=== PATIENT | male | born 1995 | race Caucasian/White ===

== ENCOUNTER 2022-11-02 00:49 | Inpatient (IN) | payer SELFPAY ==
[2022-11-02 01:06] VITALS: BMI 23.3
[2022-11-02] MEDS ORDERED: METHOCARBAMOL 500 MG TABLET PO PRN (01:51)
[2022-11-02] MEDS ORDERED: MAG HYDROX/AL HYDROX/SIMETH 30 ML UNIT-DOSE CUP PO PRN (01:51)
[2022-11-02] MEDS ORDERED: guaiFENesin 600 MG TABLET.ER (FP) PO PRN (01:51)
[2022-11-02] MEDS ORDERED: BENZONATATE 200 MG CAPSULE PO PRN (01:51)
[2022-11-02] MEDS ORDERED: ONDANSETRON *ODT* 4 MG TABLET SL PRN (01:51)
[2022-11-02] MEDS ORDERED: NALOXONE HCL 0.4 MG/ML VIAL IM PRN (01:51)
[2022-11-02] MEDS ORDERED: IBUPROFEN 400 MG TABLET (FP) PO PRN (01:51)
[2022-11-02] MEDS ORDERED: IBUPROFEN 600 MG TABLET (FP) PO PRN (01:51)
[2022-11-02] MEDS ORDERED: NALOXONE HCL (KLOXXADO) 8 MG SPRAY NS PRN (01:51)
[2022-11-02] MEDS ORDERED: POLYETHYLENE GLYCOL (HEALTHYLAX) 3350 17 GM PACKET PO PRN (01:51)
[2022-11-02] MEDS ORDERED: LOPERAMIDE HCL 2 MG CAPSULE PO PRN (01:51)
[2022-11-02] MEDS ORDERED: BENZOCAINE/MENTHOL (CHLORASEPTIC ) LOZENGE MM PRN (01:51)
[2022-11-02] MEDS ORDERED: DICYCLOMINE HCL 10 MG CAPSULE PO PRN (01:51)
[2022-11-02] MEDS ORDERED: ACETAMINOPHEN 325 MG TABLET (FP) PO PRN (01:51)
[2022-11-02] MEDS ORDERED: MAGNESIUM HYDROX 2400MG/30ML ORAL SUSPENSION 30 ML CUP PO PRN (01:51)
[2022-11-02] MEDS ORDERED: BISMUTH SUBSALICYLATE 524 MG/30 ML PO PRN (01:51)
[2022-11-02] MEDS ORDERED: cloNIDine HCL 0.1 MG TABLET PO PRN (02:02)
[2022-11-02] MEDS ORDERED: methaDONE HCL 10 MG TABLET (FOR DETOX USE ONLY) PO ONE (02:02)
[2022-11-02] MEDS: NICOTINE POLACRILEX 2 MG GUM BUC PRN ×2 (03:39→06:15)
[2022-11-02] MEDS: hydrOXYzine PAMOATE 25 MG CAPSULE (FP) PO PRN ×2 (04:42→10:14)
[2022-11-02 06:18] VITALS: TEMP 97.7
[2022-11-02 09:55] VITALS: BP 122/65; PULSE 84; RESP 18
[2022-11-02] MEDS ORDERED: PRENATAL VITAMINS W/ FOLIC ACID TABLET (FP) PO SCH (10:00)
[2022-11-02] MEDS ORDERED: NICOTINE 14 MG/24 HOURS TOPICAL PATCH TD SCH (10:00)
[2022-11-02] MEDS ORDERED: diazePAM 5 MG TABLET PO PRN (10:38)
[2022-11-02] MEDS ORDERED: MELATONIN 5 MG TABLETS PO SCH (22:00)
[2022-11-02] MEDS ORDERED: THIAMINE HCL 100 MG TABLET (FP) PO SCH (22:00)
[2022-11-04] MEDS ORDERED: methaDONE HCL 10 MG TABLET (FOR DETOX USE ONLY) PO ONE (10:00)
[2022-11-06] MEDS ORDERED: methaDONE HCL 10 MG TABLET (FOR DETOX USE ONLY) PO ONE (10:00)
== END 2022-11-02 12:14 | disposition home or self-care (01) | DRG 773 ==
LOC: YASAS 00:49 → Y3N 01:58
PROVIDERS: ADMIT Allergy & Immunology; ATTEND Allergy & Immunology
PROC: HZ2ZZZZ Detoxification Services for Substance Abuse Treatment (ICD-10-PCS; principal; 2022-11-02)
DX: F11.23 Opioid dependence with withdrawal (principal); F15.90 Other stimulant use, unspecified, uncomplicated; F17.210 Nicotine dependence, cigarettes, uncomplicated; J45.909 Unspecified asthma, uncomplicated; M54.50 Low back pain, unspecified; G89.29 Other chronic pain; Z86.61 Personal history of infections of the central nervous system; Z28.310 Unvaccinated for COVID-19; Z28.9 Immunization not carried out for unspecified reason
CPT/HCPCS: 93005; 93010; C9803-CS; U0003; U0005

== ENCOUNTER 2022-11-13 19:56 | Inpatient (IN) | payer SELFPAY ==
[2022-11-13 20:34] VITALS: BMI 24.2
[2022-11-13] MEDS ORDERED: IBUPROFEN 600 MG TABLET (FP) PO PRN (22:19)
[2022-11-13] MEDS ORDERED: ALBUTEROL SO4 HFA INHALER IH PRN (22:19)
[2022-11-13] MEDS ORDERED: NALOXONE HCL 0.4 MG/ML VIAL IM PRN (22:20)
[2022-11-13] MEDS ORDERED: NICOTINE POLACRILEX 2 MG GUM BUC PRN (22:20)
[2022-11-13] MEDS ORDERED: BENZOCAINE/MENTHOL (CHLORASEPTIC ) LOZENGE MM PRN (22:20)
[2022-11-13] MEDS ORDERED: P-EPHED 60MG/TRIPROLIDI 2.5MG TABLET PO PRN (22:20)
[2022-11-13] MEDS ORDERED: MELATONIN 5 MG TABLETS PO PRN (22:20)
[2022-11-13] MEDS ORDERED: IBUPROFEN 400 MG TABLET (FP) PO PRN (22:20)
[2022-11-13] MEDS ORDERED: LOPERAMIDE HCL 2 MG CAPSULE PO PRN (22:20)
[2022-11-13] MEDS ORDERED: DICYCLOMINE HCL 10 MG CAPSULE PO PRN (22:20)
[2022-11-13] MEDS ORDERED: ONDANSETRON *ODT* 4 MG TABLET SL PRN (22:20)
[2022-11-13] MEDS ORDERED: POLYETHYLENE GLYCOL (HEALTHYLAX) 3350 17 GM PACKET PO PRN (22:20)
[2022-11-13] MEDS ORDERED: MAGNESIUM HYDROX 2400MG/30ML ORAL SUSPENSION 30 ML CUP PO PRN (22:20)
[2022-11-13] MEDS ORDERED: ACETAMINOPHEN 325 MG TABLET (FP) PO PRN ×2 (22:20)
[2022-11-13] MEDS ORDERED: guaiFENesin 600 MG TABLET.ER (FP) PO PRN (22:20)
[2022-11-13] MEDS ORDERED: BENZONATATE 200 MG CAPSULE PO PRN (22:20)
[2022-11-13] MEDS ORDERED: BISMUTH SUBSALICYLATE 524 MG/30 ML PO PRN (22:20)
[2022-11-13] MEDS ORDERED: MAG HYDROX/AL HYDROX/SIMETH 30 ML UNIT-DOSE CUP PO PRN (22:20)
[2022-11-13] MEDS ORDERED: NALOXONE (NARCAN) HCL 4 MG/0.1 ML SPRAY NS SCH (22:30)
[2022-11-14] MEDS: hydrOXYzine PAMOATE 25 MG CAPSULE (FP) PO PRN ×2 (02:21→10:22)
[2022-11-14 02:24] VITALS: RESP 18
[2022-11-14] MEDS ORDERED: diazePAM 5 MG TABLET PO PRN (09:44)
[2022-11-14 09:50] VITALS: BP 123/66; PULSE 76; TEMP 97.1
[2022-11-14] MEDS ORDERED: PRENATAL VITAMINS W/ FOLIC ACID TABLET (FP) PO SCH (10:00)
[2022-11-14] MEDS ORDERED: METHOCARBAMOL 500 MG TABLET PO SCH (14:00)
[2022-11-14 15:14] LABS: HEMATOCRIT 35.8 % (35.4-49); HEMOGLOBIN 12.4 GM/dL (11.7-16.9); MCHC 34.6 g/dl (32.0-35.9); MEAN CELL VOLUME 92.5 fl (80-96); MEAN PLT VOLUME 8.9 fl (7.5-11.1); PLATELET COUNT 165 10^3/uL (134-434); RBC 3.87 M/mm3 (4.00-5.60); RDW 12.3 % (11.9-15.9); WHITE BLOOD COUNT 7.9 K/mm3 (4.0-10.0)
[2022-11-14 15:43] LABS: POTASSIUM 3.8 mmol/L (3.5-5.1)
[2022-11-14 15:46] LABS: ALBUMIN 3.4 g/dl (3.4-5.0); BLOOD UREA NITROGEN 9.6 mg/dL (7-18); CALCIUM 8.6 mg/dL (8.5-10.1)
[2022-11-14 15:49] LABS: CREATININE 0.7 mg/dL (0.55-1.3)
[2022-11-14 15:51] LABS: BILIRUBIN,TOTAL 0.8 mg/dL (0.2-1); TOT PROT 6.3 g/dl (6.4-8.2)
[2022-11-14] MEDS ORDERED: THIAMINE HCL 100 MG TABLET (FP) PO SCH (22:00)
== END 2022-11-14 11:23 | disposition left against medical advice (07) | DRG 770 ==
LOC: YASAS 19:56 → Y6N 11-14 01:41
PROVIDERS: ADMIT Allergy & Immunology; ATTEND Surgery
PROC: HZ2ZZZZ Detoxification Services for Substance Abuse Treatment (ICD-10-PCS; principal; 2022-11-14)
DX: F11.23 Opioid dependence with withdrawal (principal); F17.210 Nicotine dependence, cigarettes, uncomplicated; J45.909 Unspecified asthma, uncomplicated; Z28.310 Unvaccinated for COVID-19; Z28.9 Immunization not carried out for unspecified reason
CPT/HCPCS: 36415; 80053; 85027; 86780; C9803-CS; U0003; U0005